=== PATIENT | male | born 1955 | race Caucasian/White ===

== ENCOUNTER 2016-08-10 09:06 | Emergency (ER) | payer OTHER ==
[2016-08-10 09:25] VITALS: BP 139/84
--- NOTE | 2016-08-10 09:36 | UC ---
Minor Trauma HPI - HPI Summary HPI Summary: 61 Y/O male S/P fall on ice on 08/09/16, States ground level fall on left side with pain today in left rib cage, pain is reproducible with palpation, Denies dyspnea, cardiac chest pain, diaphoresis, nausea or vomiting. Denies LOC. - History of Current Complaint Chief Complaint: UCUpperExtremity Stated Complaint: RIB PAIN FROM FALL 08/09 Time Seen by Provider: 08/10/16 09:18 Hx Obtained From: Patient Onset/Duration: Sudden Onset, Lasting Days Onset Of Pain: Immediate Severity Initially: Moderate Severity Currently: Moderate Pain Intensity: 5 Pain Scale Used: 0-10 Numeric Mechanism Of Injury: Fall From A Standing Position Aggravating Factor(s): Coughing, Deep Breaths Alleviating Factor(s): Compression, Rest - Risk Factors Penetrating Injury Risk Factors: Negative - Allergies/Home Medications Allergies/Adverse Reactions: Allergies Allergy/AdvReac Type Severity Reaction Status Date / Time Brompheniramine Allergy Rash Verified 08/10/16 09:15 [From Drixoral] Pseudoephedrine Allergy Rash Verified 08/10/16 09:15 [From Drixoral] PMH/Surg Hx/FS Hx/Imm Hx Previously Healthy: Yes - Surgical History Surgical History: Yes Surgery Procedure, Year, and Place: T&A, 2 eye surgeries as a child. knee. vasectomy - Family History Known Family History: Positive: Unknown - adopted - Social History Occupation: Employed Part-time Lives: Alone Alcohol Use: Occasionally Substance Use Type: None Smoking Status (MU): Former Smoker Have You Smoked in the Last Year: No When Did the Patient Quit Smoking/Using Tobacco: 30 years ago Review of Systems Constitutional: Negative Skin: Bruising - L chest Eyes: Negative ENT: Negative Respiratory: Cough Cardiovascular: Negative Gastrointestinal: Negative Genitourinary: Negative Motor: Negative Neurovascular: Negative Musculoskeletal: Negative Neurological: Negative Psychological: Negative All Other Systems Reviewed And Are Negative: Yes Physical Exam Triage Information Reviewed: Yes Appearance: Well-Appearing Vital Signs: Initial Vital Signs Temp 97.5 F 08/10/16 09:17 Pulse 69 08/10/16 09:17 Resp 18 08/10/16 09:17 BP 139/84 08/10/16 09:17 Pulse Ox 100 08/10/16 09:17 Vital Signs Reviewed: Yes Eye Exam: Normal ENT Exam: Normal Respiratory Exam: Normal Respiratory: Positive: Lungs clear, Normal breath sounds Cardiovascular Exam: Normal Cardiovascular: Positive: RRR Abdominal Exam: Normal Abdomen Description: Positive: Nontender Bowel Sounds: Positive: Present Musculoskeletal Exam: Normal Musculoskeletal: Positive: ROM Intact Neurological Exam: Normal Skin Exam: Normal Minor Trauma Course/Dx - Differential Dx/Diagnosis Differential Diagnosis/HQI/PQRI: Contusion(s), Fracture, Strain Provider Diagnoses: Bruising / muscle pain Discharge - Discharge Plan Condition: Stable Disposition: HOME Additional Instructions: May take ibuprophen 600mg every eight hours with food as needed for pain / discomfort. Please follow up with primary medical provider or return to walk in clinic for increasing pain or shortness of breath.
--- NOTE | 2016-08-10 10:11 | RAD ---
Indication: Fall, chest injury and left anterior chest pain. 2 views of the chest including dual energy PA view demonstrates no mediastinal shift. Heart is normal size and configuration. Lung velazquez are clear. No pneumothorax is identified. IMPRESSION: No active cardiopulmonary disease is noted.
== END 2016-08-10 10:49 | disposition home or self-care (01) ==
LOC: UCCORT 09:06
DX: S20.212A Contusion of left front wall of thorax, initial encounter (principal); W19.XXXA Unspecified fall, initial encounter; Y93.9 Activity, unspecified; Y92.9 Unspecified place or not applicable; R07.81 Pleurodynia; Z87.891 Personal history of nicotine dependence
CPT/HCPCS: 71020; 99211; G0463

== ENCOUNTER 2017-06-30 10:04 | Emergency (ER) | payer OTHER ==
[2017-06-30 11:44] VITALS: BP 142/82
--- NOTE | 2017-06-30 11:57 | UC ---
Respiratory Complaint HPI - HPI Summary HPI Summary: 62 y/o male presents to the urgent care c/o subjective fever, dry cough, sore throat, SALCEDO, body aches and chills for the past 4 days. Pt has taken Nyquill to alleviate symptoms. Pt denies SOB, chest pain ,abdominal pain, N/V/D - History of Current Complaint Chief Complaint: UCGeneralIllness Stated Complaint: CONGESTION COUGH Time Seen by Provider: 06/30/17 11:55 Hx Obtained From: Patient Onset/Duration: Gradual Onset, Lasting Days - 4 days, Still Present, Worse Since - today Timing: Constant Severity Initially: Mild Severity Currently: Moderate Pain Intensity: 5 Pain Scale Used: 0-10 Numeric Character: Cough: Nonproductive Aggravating Factors: Recumbent Position Alleviating Factors: OTC Meds Associated Signs And Symptoms: Positive: Fever, Chills, URI, Nasal Congestion - Risk Factors Pulmonary Embolism Risk Factors: Negative Cardiac Risk Factors: Negative Pseudomonas Risk Factors: Negative Tuberculosis Risk Factors: Negative - Allergies/Home Medications Allergies/Adverse Reactions: Allergies Allergy/AdvReac Type Severity Reaction Status Date / Time MS Brompheniramine Allergy Rash Verified 06/30/17 11:39 [From Drixoral] MS Pseudoephedrine Allergy Rash Verified 06/30/17 11:39 [From Drixoral] Home Medications: Home Medications Aspirin TAB* [Aspirin 325 MG TAB*] 650 mg PO Q6H PRN 06/30/17 [History Confirmed 06/30/17] [id number] [VICKS DAYQUIL/NYQUIL COLD (Liquid)] 30 ml PO Q6H PRN 06/30/17 [History Confirmed 06/30/17] PMH/Surg Hx/FS Hx/Imm Hx Previously Healthy: Yes - Pt denies PMHX - Surgical History Surgical History: Yes Surgery Procedure, Year, and Place: T&A, 2 eye surgeries as a child. knee. vasectomy - Family History Known Family History: Positive: Unknown - adopted - Social History Occupation: Employed Full-time Lives: With Family Alcohol Use: Rare Substance Use Type: None Smoking Status (MU): Former Smoker Have You Smoked in the Last Year: No When Did the Patient Quit Smoking/Using Tobacco: ~1987 Review of Systems Constitutional: Fever, Chills, Other - body aches Skin: Negative Eyes: Negative ENT: Sore Throat, Nasal Discharge, Sinus Congestion Respiratory: Cough Cardiovascular: Negative Gastrointestinal: Negative Genitourinary: Negative Motor: Negative Neurovascular: Negative Musculoskeletal: Negative Neurological: Headache Psychological: Negative Is Patient Immunocompromised?: No All Other Systems Reviewed And Are Negative: Yes Physical Exam Triage Information Reviewed: Yes Vital Signs: Initial Vital Signs Temp 100.5 F 06/30/17 11:38 Pulse 82 06/30/17 11:38 Resp 16 06/30/17 11:38 BP 142/82 06/30/17 11:38 Pulse Ox 99 06/30/17 11:38 - Additional Comments VITAL SIGNS: Reviewed. GENERAL: Patient is a well developed and nourished male who is sitting comfortable in the examining table. Patient is not in any acute respiratory distress. HEAD AND FACE: No signs of trauma. No ecchymosis, hematomas or skull depressions. No sinus tenderness. edematous erythematous nasal mucosa with yellowish discharge, EYES: PERRLA, EOMI x 2, No injected conjunctiva, clear watery eyes, no nystagmus. No photophobia. EARS: Hearing grossly intact. Ear canals and tympanic membranes are within normal limits. MOUTH: Positive pharynx with erythema, no exudates,no palatal petechiae. no B/ L tonsillar enlargement Uvula in midline. NECK: Supple, trachea is midline, Positive anterior cervical lymphadenopathy, no JVD, no carotid bruit, no c-spine tenderness, neck with full ROM. No meningeal signs, no Kernig's or brudzinskis signs. CHEST: Symmetric, no tenderness at palpation LUNGS: Clear to auscultation bilaterally. No wheezing or crackles. CVS: Regular rate and rhythm, S1 and S2 present, no murmurs or gallops appreciated. ABDOMEN: Soft, non-tender. No signs of distention. No rebound no guarding, and no masses palpated. Bowel sounds are normal. EXTREMITIES: FROM in all major joints, no edema, no cyanosis or clubbing. NEURO: Alert and oriented x 3. No acute neurological deficits. Speech is normal and follows commands. SKIN: Dry and warm UC Diagnostic Evaluation - Laboratory O2 Sat by Pulse Oximetry: 99 Respiratory Course/Dx - Course Course Of Treatment: 62 y/o male presents to the urgent care c/o subjective fever, dry cough, sore throat, SALCEDO, body aches and chills for the past 4 days. Pt has taken Nyquill to alleviate symptoms. Pt denies SOB, chest pain , abdominal pain, N/V/D. Pt with URI and febrile on examination. Pt requested Tamiflu PO , despite explanning him the probability the antiviral may not be effective since it has been 4 days since symptoms started. Pt given Ibuprofen at the clinic for fever. Pt tolerated well medication. Pt Rx Tamiflu and ibuprofen PO to alleviates symptoms. Advised on hand washing and wear a mask to avoid spreading. Pt advised to rest, increase fluid intake, eat well and avoid strenuous exercise. If symptoms do not improve or worsen advised to return to the urgent care or f/u with her PCP for further evaluation and treatment. Pt understood and agreed with plan of care. - Differential Dx/Diagnosis Differential Diagnosis/HQI/PQRI: Bronchitis, Influenza, Laryngitis, Lower Resp Infection, Sinusitis Provider Diagnoses: 1- Influenza. 2-Elevated BP w/o Hx of HTN. 3-fever Discharge - Discharge Plan Condition: Stable Disposition: HOME Prescriptions: Benzonatate CAP* [Tessalon 100 MG CAP*] 100 mg PO TID #28 cap Ibuprofen TAB* [Motrin TAB* 800 MG] 800 mg PO Q6H #20 tab Oseltamivir CAP* [Tamiflu CAP*] 75 mg PO BID #10 cap Patient Education Materials: Viral Syndrome (ED), Low-Sodium Diet (ED) Referrals: Nathaniel Vigil DO [Primary Care Provider] - 3 Days Additional Instructions: 1- Please take the full course of the antiviral to avoid resistance. Encourage hand washing and wear a mask to avoid spreading. 2-Please take Ibuprofen PO q6-8hrs prn as instructed after meals to alleviate fever, and sore throat. Increase fluid intake, eat well, rest and avoid strenuous exercise 3-If symptoms do not improve or worsen please return to the urgent care or f/u with your PCP in 2 days for further evaluation and treatment. 4-Your BP is elevated today. please decrease salt in your diet, monitor BP and if it continues to be elevated please f/u with your PCP for further management
[2017-06-30] MEDS ORDERED: Ibuprofen TAB* 400 MG PO ONE (12:13)
== END 2017-06-30 12:40 | disposition home or self-care (01) ==
LOC: UCCORT 10:04
DX: J11.1 Influenza due to unidentified influenza virus with other respiratory manifestations (principal); R03.0 Elevated blood-pressure reading, without diagnosis of hypertension; Z87.891 Personal history of nicotine dependence; Z79.82 Long term (current) use of aspirin
CPT/HCPCS: 99212; A9270-GY; G0463

== ENCOUNTER 2017-07-04 12:09 | Emergency (ER) | payer OTHER ==
[2017-07-04 14:18] VITALS: BP 135/84
--- NOTE | 2017-07-04 14:21 | UC ---
Respiratory Complaint HPI - HPI Summary HPI Summary: patient was treated for flu 3 days ago, how is hoarse, having difficulty talking and severe cough - History of Current Complaint Stated Complaint: RECHECK, LOSS OF VOICE Time Seen by Provider: 07/04/17 14:03 Hx Obtained From: Patient Onset/Duration: Sudden Onset, Lasting Days Timing: Constant Severity Initially: Moderate Severity Currently: Moderate Pain Intensity: 0 Character: Cough: Productive Aggravating Factors: Exertion, Deep Breaths, Recumbent Position Alleviating Factors: Nothing Associated Signs And Symptoms: Positive: Wheezing, URI, Nasal Congestion - Allergies/Home Medications Allergies/Adverse Reactions: Allergies Allergy/AdvReac Type Severity Reaction Status Date / Time brompheniramine Allergy Rash Verified 07/04/17 14:15 [From Drixoral] dexbrompheniramine Allergy Rash Verified 07/04/17 14:15 [From Drixoral] pseudoephedrine Allergy Rash Verified 07/04/17 14:15 [From Drixoral] PMH/Surg Hx/FS Hx/Imm Hx Previously Healthy: Yes - Surgical History Surgical History: Yes Surgery Procedure, Year, and Place: T&A, 2 eye surgeries as a child. knee. vasectomy - Family History Known Family History: Positive: Unknown - adopted Negative: Cardiac Disease, Hypertension - Social History Alcohol Use: Rare Substance Use Type: None Smoking Status (MU): Former Smoker Have You Smoked in the Last Year: No When Did the Patient Quit Smoking/Using Tobacco: ~1987 Review of Systems Constitutional: Negative Skin: Negative Eyes: Negative ENT: Sore Throat Respiratory: Shortness Of Breath, Cough Cardiovascular: Negative Gastrointestinal: Negative Genitourinary: Negative Motor: Negative Neurovascular: Negative Musculoskeletal: Negative Neurological: Negative Psychological: Negative Is Patient Immunocompromised?: No All Other Systems Reviewed And Are Negative: Yes Physical Exam Triage Information Reviewed: Yes Appearance: Well-Nourished, Ill-Appearing, Pain Distress Vital Signs: Initial Vital Signs Temp 98.9 F 07/04/17 14:13 Pulse 62 07/04/17 14:13 Resp 16 07/04/17 14:13 BP 135/84 07/04/17 14:13 Pulse Ox 97 07/04/17 14:13 Vital Signs Reviewed: Yes Eye Exam: Normal ENT: Positive: Pharyngeal erythema, TM red Dental Exam: Normal Respiratory: Positive: Chest non-tender, Normal breath sounds, No respiratory distress, No accessory muscle use, Wheezing, Expiration Cardiovascular Exam: Normal Cardiovascular: Positive: RRR, No Murmur, Pulses Normal Abdominal Exam: Normal Abdomen Description: Positive: Nontender, No Organomegaly, Soft Bowel Sounds: Positive: Present Musculoskeletal Exam: Normal Musculoskeletal: Positive: Strength Intact, ROM Intact Neurological Exam: Normal Neurological: Positive: Alert, Muscle Tone Normal Psychological Exam: Normal Skin Exam: Normal UC Diagnostic Evaluation - Laboratory O2 Sat by Pulse Oximetry: 97 Respiratory Course/Dx - Course Course Of Treatment: hx obtained, exam performed ,meds reviewed, treated for wheezing and cough - Differential Dx/Diagnosis Differential Diagnosis/HQI/PQRI: Asthma, Bronchitis, Influenza, Laryngitis, Sinusitis Provider Diagnoses: influenza, bronchospasm Discharge - Discharge Plan Condition: Stable Disposition: HOME Prescriptions: guaiFENesin/CODIEN 100MG-10MG* [Robitussin AC 100Mg-10Mg*] 10 ml PO Q4H PRN # 150 ml MDD 40 ml PRN Reason: Cough predniSONE TAB* [Deltasone TAB*] 40 mg PO DAILY #14 tab Patient Education Materials: Laryngitis (ED), Bronchospasm (ED) Referrals: Nathaniel Vigil DO [Primary Care Provider] - Additional Instructions: 1. take the medication as prescribed. 2. Continue warm fluids, minimize the talking to help the vocal cords rest.
== END 2017-07-04 14:26 | disposition home or self-care (01) ==
LOC: UCCORT 12:09
DX: J11.1 Influenza due to unidentified influenza virus with other respiratory manifestations (principal); J98.01 Acute bronchospasm; Z87.891 Personal history of nicotine dependence
CPT/HCPCS: 99212; G0463